=== PATIENT | female | born 1990 | race Caucasian/White ===

== ENCOUNTER 2020-10-31 05:05 | Outpatient (CLI) | payer OTHER, SELFPAY ==
[2020-10-31 14:14] LABS: Hemoglobin A1C 4.9 % (<5.7)
[2020-10-31 14:33] LABS: Calculated LDL 96 mg/dL (<100); Cholesterol 182 mg/dL (<200); HDL Cholesterol 47 mg/dL (40-60); Triglyceride 197 mg/dL (<150)
[2020-10-31 14:42] LABS: Anion Gap 9.4 mmol/L (3-11); BUN 7 mg/dL (7-18); CO2 25.6 mmol/L (21.0-32.0); CREATININE 0.73 mg/dL (0.55-1.02); Calcium 9.1 mg/dL (8.5-10.1); Chloride 103 mmol/L (98-107); FREE T4 0.75 ng/dL (0.76-1.46); Glucose 99 mg/dL (74-106); Potassium 3.9 mmol/L (3.5-5.1); Sodium 138 mmol/L (136-145); TSH 21.83 uIU/mL (0.36-3.74)
[2020-11-01 09:46] LABS: Thyroglobulin Antibody >500 U/mL (<=60); Thyroperoxidase Antibody >1300 U/mL (<=60)
== END 2020-10-31 05:25 ==
PROVIDERS: PCP Nurse Practitioner Family; Visit Provider Nurse Practitioner Family
DX: E03.9 Hypothyroidism, unspecified (principal)
CPT/HCPCS: 36415; 80048; 80061; 86376; 83036; 84439; 84443

== ENCOUNTER 2021-02-07 02:43 | Outpatient (CLI) | payer OTHER, SELFPAY ==
[2021-02-07 15:05] LABS: FREE T4 0.94 ng/dL (0.76-1.46); TSH 5.77 uIU/mL (0.36-3.74)
== END 2021-02-07 02:44 | disposition home or self-care (01) ==
LOC: LBO 02:43
PROVIDERS: PCP Nurse Practitioner Family; Visit Provider Nurse Practitioner Family
DX: E03.9 Hypothyroidism, unspecified (principal)
CPT/HCPCS: 36415; 84439; 84443

== ENCOUNTER 2021-10-03 03:46 | Outpatient (CLI) | payer OTHER, SELFPAY ==
[2021-10-03 12:53] LABS: Abs Immature Grans 0.01 10^3/uL (0.0-0.06); Absolute Basophil Count 0.04 10^3/uL (0.0-0.2); Absolute Eosinophil Count 0.21 10^3/uL (0.0-0.7); Absolute Lymphocyte Count 2.47 10^3/uL (1.2-3.4); Absolute Monocyte Count 0.51 10^3/uL (0.1-0.8); Basophils % 0.6; HCT 37.8 % (36.0-46.0); HGB 12.4 g/dL (11.2-15.7); Immature Grans % 0.1; Lymphocytes % 35.6; MCHC 32.8 % (32.0-36.0); MCV 91.5 fL (80-95); MPV 10.2 fL (8.0-11.0); Monocytes % 7.3; Neutrophils % 53.4; Nucleated RBC 0 %; Platelet Count 288 10^3/uL (130-400); RBC 4.13 10^6/uL (3.93-5.22); RDW 13.2 % (11.7-14.6); RDW-SD 44.1 fL; WBC 6.94 10^3/uL (4.4-10.8)
[2021-10-03 13:50] LABS: FREE T4 0.67 ng/dL (0.76-1.46); TSH 12.61 uIU/mL (0.36-3.74)
== END 2021-10-03 03:47 | disposition home or self-care (01) ==
LOC: LBO 03:46
PROVIDERS: PCP Nurse Practitioner Family; Visit Provider Nurse Practitioner Family
DX: E03.9 Hypothyroidism, unspecified (principal)
CPT/HCPCS: 36415; 84439; 84443; 85025

== ENCOUNTER 2021-11-28 10:00 | Outpatient (CLI) | payer OTHER, SELFPAY ==
[2021-11-28 22:56] LABS: COVID-19 RT-PCR UVMMC Result Negative (Negative)
== END 2021-11-28 10:01 | disposition home or self-care (01) ==
LOC: LBO 10:00
PROVIDERS: PCP Nurse Practitioner Family; Visit Provider Nurse Practitioner Family
DX: Z20.822 Contact with and (suspected) exposure to COVID-19 (principal)
CPT/HCPCS: U0003

== ENCOUNTER 2022-04-23 02:58 | Outpatient (CLI) | payer OTHER, SELFPAY ==
[2022-04-23 12:54] LABS: FREE T4 0.57 ng/dL (0.76-1.46); TSH 37.69 uIU/mL (0.36-3.74)
== END 2022-04-23 02:59 | disposition home or self-care (01) ==
LOC: LOS 02:58
PROVIDERS: PCP Nurse Practitioner Family; Visit Provider Nurse Practitioner Family
DX: E03.9 Hypothyroidism, unspecified (principal)
CPT/HCPCS: 36415; 84439; 84443

== ENCOUNTER 2022-05-18 15:27 | Outpatient (REF) | payer OTHER, SELFPAY ==
[2022-05-20 15:12] LABS: COVID-19 RT-PCR UVMMC Result Positive (Negative)
== END 2022-05-18 15:28 | disposition home or self-care (01) ==
LOC: LBN 15:27
PROVIDERS: PCP Nurse Practitioner Family; Visit Provider Nurse Practitioner Family
DX: Z20.822 Contact with and (suspected) exposure to COVID-19 (principal)
CPT/HCPCS: U0003

== ENCOUNTER 2022-07-24 11:13 | Outpatient (REF) | payer OTHER, SELFPAY ==
--- NOTE | 2022-07-24 11:30 | PAPFT_PTH ---
PATIENT: Thao Gill LOC: [facility] U#:[id number] AGE/SX: 32/F ROOM: RE07/24/[address]: ECHO Neal : 1990 BED: DIS: 07/24/2022 SPEC #: [id number] RECD: 07/28/22 12:39 STATUS: SUZANNE REQ #: [id number] GERMAN: 07/24/22 11:[address]: Starla Villegas DEPT: [facility] Cytology RECD BY: Kori Weller Tissues: 1 - CX/ENDOCX FOR PAP SMEARS Procedures: PAP THIN PREP/UVM Screening HPV DNA PROBE Comments: [id number]
== END 2022-07-24 11:14 | disposition home or self-care (01) ==
LOC: LBN 11:13
PROVIDERS: PCP Nurse Practitioner Family; Visit Provider Nurse Practitioner Family
DX: Z12.4 Encounter for screening for malignant neoplasm of cervix (principal); Z11.51 Encounter for screening for human papillomavirus (HPV)
CPT/HCPCS: 88142; 87624

== ENCOUNTER 2022-11-06 15:56 | Outpatient (CLI) | payer OTHER, SELFPAY ==
[2022-11-06 16:19] LABS: Hemoglobin A1C 5.5 % (<5.7)
[2022-11-06 16:35] LABS: Anion Gap 7.6 mmol/L (3-11); BUN 10 mg/dL (7-18); CO2 27.4 mmol/L (21.0-32.0); CREATININE 0.8 mg/dL (0.55-1.02); Calcium 8.9 mg/dL (8.5-10.1); Calculated LDL 117 mg/dL (<100); Chloride 104 mmol/L (98-107); Cholesterol 181 mg/dL (<200); Estimated GFR 100.33 (mL/min/1.73m2); Glucose 93 mg/dL (74-106); HDL Cholesterol 46 mg/dL (40-60); Potassium 3.5 mmol/L (3.5-5.1); Sodium 139 mmol/L (136-145); TSH 0.01 uIU/mL (0.36-3.74); Triglyceride 90 mg/dL (<150)
[2022-11-06 16:52] LABS: FREE T4 1.12 ng/dL (0.76-1.46)
== END 2022-11-06 15:57 | disposition home or self-care (01) ==
LOC: LBO 15:56
PROVIDERS: PCP Nurse Practitioner Family; Visit Provider Nurse Practitioner Family
DX: E03.9 Hypothyroidism, unspecified (principal); R53.83 Other fatigue; Z79.899 Other long term (current) drug therapy; F90.8 Attention-deficit hyperactivity disorder, other type
CPT/HCPCS: 36415; 80048; 80061; 82533; 83036; 84439; 84443

== ENCOUNTER 2023-03-30 02:50 | Outpatient (CLI) | payer OTHER, SELFPAY ==
[2023-03-30 16:09] LABS: FREE T4 1.26 ng/dL (0.76-1.46); TSH 0.03 uIU/mL (0.36-3.74)
== END 2023-03-30 02:51 | disposition home or self-care (01) ==
PROVIDERS: PCP Nurse Practitioner Family; Visit Provider Nurse Practitioner Family
DX: E03.9 Hypothyroidism, unspecified (principal)
CPT/HCPCS: 36415; 84439; 84443

== ENCOUNTER 2023-09-16 04:12 | Outpatient (CLI) | payer OTHER, SELFPAY ==
[2023-09-16 16:13] LABS: Abs Immature Grans 0.02 10^3/uL (0.0-0.06); Absolute Basophil Count 0.06 10^3/uL (0.0-0.2); Absolute Eosinophil Count 0.23 10^3/uL (0.0-0.7); Absolute Lymphocyte Count 3.73 10^3/uL (1.2-3.4); Absolute Monocyte Count 0.61 10^3/uL (0.1-0.8); Absolute Neutrophil Count 4.15 10^3/uL (1.2-6.7); Basophils % 0.7; Eosinophils % 2.6; HCT 42.6 % (36.0-46.0); HGB 14.4 g/dL (11.2-15.7); Immature Grans % 0.2; Lymphocytes % 42.4; MCH 30.3 pg (27.0-33.0); MCHC 33.8 % (32.0-36.0); MCV 90 fL (80-95); MPV 10.5 fL (8.0-11.0); Monocytes % 6.9; Neutrophils % 47.2; Platelet Count 322 10^3/uL (130-400); RBC 4.76 10^6/uL (3.93-5.22); RDW-SD 42.5 fL
[2023-09-16 16:45] LABS: TSH (W/Ref FT4) 96.22 uIU/mL (0.36-3.74)
[2023-09-16 17:05] LABS: FREE T4 0.72 ng/dL (0.76-1.46)
== END 2023-09-16 04:13 | disposition home or self-care (01) ==
PROVIDERS: PCP Nurse Practitioner Family; Visit Provider Nurse Practitioner Family
DX: E03.9 Hypothyroidism, unspecified (principal); R53.83 Other fatigue
CPT/HCPCS: 36415; 84439; 84443; 85025

== ENCOUNTER → 2023-09-28 00:22 | Outpatient (CLI) | payer OTHER, SELFPAY ==
--- NOTE | 2023-09-28 07:15 | DI.MAMMO_ITS ---
Exam(s) US BREAST LT COMPLETE MG MAMMO DIAGNOSTIC BI EXAM: MAMMO DIAGNOSTIC BI AND COMPLETE LEFT BREAST ULTRASOUND CLINICAL HISTORY: left breast nodule/lump, s/p bilateral breast reduction,n63.0. TECHNIQUE: Both CC and MLO mammographic images both breast were obtained with 3D tomosynthesis techn ique and utilizing computer aided detection (CAD). Also performed 3D spot compression view of area o f palpable concern in the left breast. Complete left breast ultrasound was performed including all 4 quadrants as well as the ipsilateral-le ft axilla. COMPARISON: None. This is the 1st mammogram on this 33-year-old patient who underwent bilateral red uction surgery in November 2022 apparently with multiple complications thereafter. Her family physician recently felt a lump in the left breast. FINDINGS: DIAGNOSTIC BILATERAL MAMMOGRAM: There are multiple surgical clips in both breasts. there is some architectural distortion from the p rior reduction surgery. There are no significant focal findings in the right breast. In the left breast there is a subtle asymmetric density, this exactly corresponding to her palpable a yaw inferiorly at approximately 6-7 o'clock position, measuring approximately 1.5 x 0.8 cm, not assoc iated with microcalcifications. Otherwise there is a benign-appearing intramammary lymph noted in the left axillary tail. COMPLETE LEFT BREAST ULTRASOUND: The only ultrasound findings in left breast correspond to the general palpable region, inferiorly at the 6-7 o'clock positions. There is a wider than taller elliptical slightly lobulated non cystic-solid nodule measuring 1.5 x 0. 7 cm which exactly corresponds to her palpable finding. Extending from this is a thin 1.5 mm channel which is approximately 20 mm length and which connects to a similar appearing but smaller solid nodu le which measures approximately 0.8 by 0.5 cm. Close by in the same region of the breasts are 2 adjacent findings, one being a 0.8 x 0.[address], and adjacent to it is a similar size 0.8 x 0.6 cm solid finding which has appearance to the above findings discussed in the paragraph above. Color flow imaging of these regions does not reveal obvious hyperemia. There are no other focal findings in all 4 quadrants of the left breast and scanning of the left axil la does not reveal significant adenopathy. IMPRESSION: 1. No findings on mammography of the right breast. 2. Abnormal left breast findings inferiorly in the left breast on mammogram and ultrasound as detaile d above. I suspect these are probably sequelae of surgery/fat necrosis but cannot exclude abscesses. Given patient's age and surgical history it would be unlikely for any this to represent neoplasm. Recommend referral back to her breast surgeon. There should be consideration for reimaging after ant ibiotic therapy (if clinically indicated). Another approach would be ultrasound-guided sampling (FNA may actually be a consideration here) of the solid appearing findings on ultrasound to determine if antibiotic treatment is warranted. 3. Nevertheless, I recommend repeat left breast imaging in 3 months to determine regression/stability /progression of the above findings in left breast. The patient was informed of the findings and follow-up recommendations by myself prior to leaving the department today. BI-RADS Category 3 - 3 month - Probably Benign Finding: Recommend follow-up mammography and ultrasound of the left breast in 3 months Breast Density - Category B - Scattered areas of fibroglandular density Breast density Category C or D implies that the patient has dense breast tissue. Dense breast tissue can make it harder to find cancer on a mammogram. Dense breast tissue is also associated with an incr eased risk of breast cancer. This information about the result of the mammogram report was provided to the patient to raise their awareness. Use this report when you speak with the patient about their risks for breast cancer, which includes their family history. At that time, you may recommend additional screening tests (Ultrasoun d or MRI) as these tests may add significant information. A negative radiographic report should not delay biopsy if a dominant or clinically suspicious mass is present. Up to ten percent of cancers are not identified on mammography. A negative report may reinforce clinical impression. Adenosis and dense breasts may obscure an underlying neoplasm. False positive reports average 6 to 10%. Patient will receive a letter notifying them of these results.
== END ==
PROVIDERS: PCP Nurse Practitioner Family; Visit Provider Nurse Practitioner Family
DX: N63.25 Unspecified lump in the left breast, overlapping quadrants (principal); Z98.890 Other specified postprocedural states
CPT/HCPCS: 76642; 77062; 77066; G0279

== ENCOUNTER 2023-10-01 04:15 | Outpatient (CLI) | payer OTHER, SELFPAY ==
[2023-10-01 13:15] LABS: ALT 19 U/L (14-59); AST 18 U/L (15-37); Albumin 4.4 g/dL (3.4-5.0); Alkaline Phosphatase 100 U/L (46-116); Anion Gap 11.4 mmol/L (3-11); BUN 15 mg/dL (7-18); Bilirubin, Total 0.4 mg/dL (0.2-1.0); CO2 23.6 mmol/L (21.0-32.0); CREATININE 1.1 mg/dL (0.55-1.02); Calcium 9.6 mg/dL (8.5-10.1); Chloride 104 mmol/L (98-107); Estimated GFR 68.04 (mL/min/1.73m2); Glucose 89 mg/dL (74-106); Potassium 3.6 mmol/L (3.5-5.1); Sodium 139 mmol/L (136-145); Total Protein 8.2 g/dL (6.4-8.2); Vitamin B12 189 pg/mL (193-986)
[2023-10-01 13:38] LABS: TSH (W/Ref FT4) 1.06 uIU/mL (0.36-3.74)
== END 2023-10-01 04:16 | disposition home or self-care (01) ==
LOC: LBO 04:15
PROVIDERS: PCP Nurse Practitioner Family; Visit Provider Nurse Practitioner Family
DX: E03.9 Hypothyroidism, unspecified (principal); Z00.00 Encounter for general adult medical examination without abnormal findings
CPT/HCPCS: 36415; 80053; 82607; 84443

== ENCOUNTER 2024-01-29 21:31 | Emergency (ER) | payer OTHER, SELFPAY ==
[2024-01-29 21:35] VITALS: BP 150/97; PULSE 108; RESP 18; TEMP 36.6
--- NOTE | 2024-01-29 22:02 | ED.GENADUL_ITS ---
Discharge Plan Disposition Patient Disposition: Home Condition: Stable Discharge Details Clinical Impression: Cat bite of hand Primary Care Provider: Starla Villegas ED Provider: Agnieszka Booth Home Meds and New Rx's Prescriptions: New amoxicillin-pot clavulanate 875-125 mg tablet 1 tab PO BID 10 Days Qty: 20 0RF No Action triamcinolone acetonide 0.5 % cream 1 applic topical DAILY PRN (Reason: dermatitis) Qty: 15 4RF phentermine 37.5 mg capsule 37.5 mg PO DAILY Qty: 90 3RF methylphenidate HCl 10 mg tablet 10 mg PO BID MDD 20mg Qty: 56 0RF Rx Instructions: Take 1 tablet twice a day cyanocobalamin (vitamin B-12) 1,000 mcg capsule 1,000 mcg PO DAILY Qty: 90 3RF levothyroxine 137 mcg tablet 137 mcg PO DAILY Qty: 90 3RF Discharge Instructions Instructions: Animal Bite (ED) Additional Instructions: Cat bites are highly infective. It does appear that you do have cellulitis to your right hand. Please take the antibiotic twice daily as directed. Please take it with yogurt or probiotic. Please have your hand rechecked in approximately 3 days. It should get better in approximately 3 to 5 days. Return if any worsening red streaks, swelling inability to use your hand, fever chills or any concerns. Follow up with primary care provider in 3-5 days. Return to ED sooner if any worsening or concerns. Increase oral fluids. Please take Tylenol or Ibuprofen with food every 4-6 hours as needed for pain and swelling. Referrals: Starla Villegas, CARROL [Primary Care Provider] - 3 days HPI General Mode of arrival: ambulatory . Date/Time Provider Initiated Documentation: 01/29/24 21:44 . Limitations to Documentation: no limitations . Information obtained by: patient, RN notes reviewed and old records reviewed . HPI Narrative: 33-year-old female presents to the ER with a chief complaint of cat bite noted to her right hand. This occurred [facility] a [facility] around 3 PM this afternoon. Patient noted some swelling to her hand and decreased flexion of fingers and some tingling radiating up her right forearm. She denies any fever or chills she does report tenderness. She reports that she thinks that she is up-to-date on her tetanus vaccination. Last Tdap on file was 2017. She does have multiple puncture hollingsworth noted to the dorsum of her hand and medial aspect of her hand. Related Data Home Medications Medication Instructions Recorded Confirmed triamcinolone acetonide 0.5 % 1 applic topical DAILY PRN 09/24/23 01/14/24 topical cream dermatitis #15 grams cyanocobalamin (vitamin B-12) 1,000 mcg PO DAILY #90 caps 10/12/23 01/14/24 1,000 mcg capsule levothyroxine 137 mcg tablet 137 mcg PO DAILY #90 tabs 10/12/23 01/14/24 phentermine 37.5 mg capsule 37.5 mg PO DAILY #90 caps 11/25/23 01/14/24 methylphenidate HCl 10 mg tablet 10 mg PO BID #56 tabs 01/14/24 01/14/24 amoxicillin 875 mg-potassium 1 tab PO BID 10 days #20 tabs 01/29/24 clavulanate 125 mg tablet Previous Rx's Medication Instructions Recorded triamcinolone acetonide 0.5 % 1 applic topical DAILY PRN 09/24/23 topical cream dermatitis #15 grams cyanocobalamin (vitamin B-12) 1,000 mcg PO DAILY #90 caps 10/12/23 1,000 mcg capsule levothyroxine 137 mcg tablet 137 mcg PO DAILY #90 tabs 10/12/23 phentermine 37.5 mg capsule 37.5 mg PO DAILY #90 caps 11/25/23 methylphenidate HCl 10 mg tablet 10 mg PO BID #56 tabs 01/14/24 amoxicillin 875 mg-potassium 1 tab PO BID 10 days #20 tabs 01/29/24 clavulanate 125 mg tablet Allergies Allergy/AdvReac Type Severity Reaction Status Date / Time No Known Allergies Allergy Verified 01/14/24 13:10 General Stated Complaint: AnimalBite DAVID: 4 Review of Systems All systems reviewed & are unremarkable except as noted in HPI and below Integumentary/Breasts Skin/Breast: Reports as per HPI, Reports skin pain, Reports skin swelling and Reports wounds Exam Extrem Right upper extremity: hand Details: warmth, swelling and puncture wound (Multiple cat bites) Course Vital Signs Vital signs: Vital Signs Temperature 36.6 C 01/29/24 21:35 Pulse 108 H 01/29/24 21:35 Respiratory Rate 18 01/29/24 21:35 Blood Pressure 150/97 H 03/09/24 21:35 Temperature 36.6 C 01/29/24 21:35 Temperature Source Tympanic 01/29/24 21:35 Pulse 108 H 01/29/24 21:35 Respiratory Rate 18 01/29/24 21:35 Respiratory Effort Normal, Non-Labored 01/29/24 21:39 Blood Pressure 150/97 H 01/29/24 21:35 Oxygen Delivery Method Room Air 01/29/24 21:35 Oxygen Flow Rate 0 01/29/24 21:35 Medical Decision Making 33-year-old female presents to the ER with a chief complaint of cat bite noted to her right hand. This occurred [facility] a [facility] around 3 PM this afternoon. Patient noted some swelling to her hand and decreased flexion of fingers and some tingling radiating up her right forearm. She denies any fever or chills she does report tenderness. She reports that she thinks that she is up-to-date on her tetanus vaccination. Last Tdap on file was 2017. She does have multiple puncture hollingsworth noted to the dorsum of her hand and medial aspect of her hand. Augmentin ordered, instructed to have re-check in 3 days or sooner if worse, scooter balized understanding. This text was generated using [employer] dictation system, please disregard any oddities of phrase or misspellings. Quality:SDOH Health Related Social Needs: No Data to Display PFSH All Active Problems (Updated 01/29/24 @ 22:18 by Agnieszka Booth NP) Cat bite of hand (Acute) Breast nodule (Acute) Left breast identified to be necrotic tissue on US 09/2023, seeing [facility] [place] Pl[facility] again Frequent epistaxis (Chronic) ADHD (attention deficit hyperactivity disorder) (Chronic) Hypothyroidism (Chronic) Allergic rhinitis (Chronic) Atopic dermatitis (Chronic) Obesity (Chronic) Vitamin B12 deficiency (Chronic) Medical History COVID-19 (~05/18/22) Surgical History S/P bilateral breast reduction (12/09/22) S/P section (10/29/18) Family History Mother Depression Glaucoma Father Prostate cancer Diabetes ADHD Brother No problems noted. Daughter No problems noted. Maternal Grandfather , 50s Lung cancer Maternal Grandmother No problems noted. Paternal Grandfather , 80 Stroke Paternal Grandmother , 60s Depression Diabetes Stroke Heart disease Social History Smoking/Tobacco Use Status: Never Smoking risk assessment performed?: Yes Alcohol Intake: current Alcohol Intake frequency: a few times a month Alcohol type: wine Drug use: Never Caregiver/Support person: No Household members: spouse and children Housing: house Communication Needs: None Do you need help understanding health information?: Never Pets and animals: Yes (2 cats) Pets and animals: cat(s) Sexually active: No Do you think of yourself as: straight/heterosexual Current gender identity: female What is your relationship status?: How often do you talk on the phone with friends or family?: three or more times per week How often do you get together with friends or relatives?: once per week How often do you attend confucianist or jewish services?: decline to answer Do you belong to any clubs or organized social groups?: no Panel score (0-1 are the most socially isolated patients): 2 What type of physical activity do you participate in: walking and weight lifting Duration: 15-30 minutes/day Frequency: 1-2 times per week [place]/Congregation: None Special [place] needs: No Seatbelt use: always Drive intox or ride w/intox coal tram driver: No Female Reproductive History Menstrual control method: natural family planning History History 1 Para 1 Hx # Term Pregnancies Multiple births Hx # Pregnancies Ectopic pregnancies AB induced Hx Number of Living Children 1 AB spontaneous
[2024-01-29] MEDS: Amox. 875/Clav. 125, 2 TABS/BTL 1 TAB PO (22:09)
[2024-01-29] MEDS: Amoxicillin 875/Clav. 125 TAB PO (22:09)
[2024-01-29 22:20] VITALS: BP 135/89; PULSE 78; RESP 14; TEMP 36.6; O2SAT 97
== END 2024-01-29 22:24 | disposition home or self-care (01) ==
PROVIDERS: Emergency Provider Registered Nurse Emergency; PCP Nurse Practitioner Family
DX: S61.451A Open bite of right hand, initial encounter (principal); L03.113 Cellulitis of right upper limb; W55.01XA Bitten by cat, initial encounter
CPT/HCPCS: 99283

== ENCOUNTER 2025-04-08 10:02 | Outpatient (REF) | payer OTHER, SELFPAY ==
[2025-04-08 12:48] LABS: Anion Gap 9.2 mmol/L (3-11); BUN 12 mg/dL (7-18); CO2 27.8 mmol/L (21.0-32.0); CREATININE 0.8 mg/dL (0.55-1.02); Calcium 8.8 mg/dL (8.5-10.1); Calculated LDL 133 mg/dL (<100); Chloride 101 mmol/L (98-107); Cholesterol 213 mg/dL (<200); Estimated GFR 99.09 (mL/min/1.73m2); Ferritin 25 ng/mL (8-252); Glucose 97 mg/dL (74-106); HDL Cholesterol 70 mg/dL (>or=50); Potassium 3.9 mmol/L (3.5-5.1); Sodium 138 mmol/L (136-145); TSH (W/Ref FT4) 32.83 uIU/mL (0.36-3.74); Triglyceride 54 mg/dL (<150)
[2025-04-08 12:50] LABS: Folate > 20.0 ng/mL (8.6-20.0)
[2025-04-08 13:06] LABS: FREE T4 0.49 ng/dL (0.76-1.46)
== END 2025-04-08 10:03 | disposition home or self-care (01) ==
LOC: LBN 10:02
PROVIDERS: PCP Nurse Practitioner Family; Visit Provider Nurse Practitioner Family
DX: E78.5 Hyperlipidemia, unspecified (principal); E53.8 Deficiency of other specified B group vitamins; E03.9 Hypothyroidism, unspecified
CPT/HCPCS: 36415; 80048; 80061; 82728; 82746; 84439; 84443